=== PATIENT | male | born 1980 | race Two or more races ===

== ENCOUNTER 2017-08-29 13:04 | Emergency (ER) | payer OTHER ==
[~2017-08-29] VITALS: Ht 177.8 cm; Wt 86.2 kg
[2017-08-29 13:23] VITALS: BP 139/88
[2017-08-29] MEDS ORDERED: CEPHALEXIN500 MG ORAL (13:37)
[2017-08-29] MEDS ORDERED: FLUCONAZOLE100 MG ORAL (13:37)
--- NOTE | 2017-08-29 13:37 | Emergency Room Report ---
History of Present Illness General Chief Complaint: Pain Source: Patient Present Illness HPI 37 yo male patient presents to ER complaining of bilateral foot infection x1 week. Reports using [employer] without relief of symptoms. Reports infection getting worse. Reports "I need abx". Patient reports has not seen primary care provider. Denies fever, chest pain, SOB, loss of sensation. Patient able to ambulate independently. Allergies: Coded Allergies: No Known Allergies (Unverified , 08/29/17) Patient History Past Medical History: see triage record Reviewed Nursing Documentation: PMH: Agreed; PSxH: Agreed Nursing Documentation-PMH Past Medical History: No Stated History Review of Systems All Other Systems: negative except mentioned in HPI Physical Exam Vital Signs Date Time Temp Pulse Resp B/P (MAP) Pulse Ox O2 Delivery O2 Flow Rate FiO2 08/29/17 13:19 98.0 76 18 139/88 94 Room Air 98.1 Sp02 EP Interpretation: reviewed, normal General Appearance: well appearing, no apparent distress, alert, GCS 15, non- toxic Head: normocephalic, atraumatic Eyes: bilateral eye normal inspection, bilateral eye PERRL Neck: full range of motion Respiratory: lungs clear, normal breath sounds, no rhonchi, no respiratory distress, no accessory muscle use, no wheezing, speaking full sentences Cardiovascular #2: 2+ dorsalis pedis (R), 2+ dorsalis pedis (L) Musculoskeletal: back normal, digits/nails normal, gait/station normal, normal range of motion, non-tender Neurologic: alert, oriented x3, responsive, motor strength/tone normal, sensory intact Skin: other - bilateral feet: multiple crusterd erythematous plaques with thick scale over plantar surface of feet, multiple macules papulr lesions with central clearing on feet and ankles, no active draining, no pus, no bleeding Medical Decision Making PA Attestation Dr. Bean is my supervising Physician whom patient management has been discussed with. Diagnostic Impression: Primary Impression: Foot infection ER Course Pt. presents to the ED c/o bilateral foot infection. Ddx considered but are not limited to atopic dermatitis, scabies, tinea pedis, cellulitis. Vital signs: are WNL, pt. is afebrile ORDERS: None required at this time, the diagnosis is clinical ED COURSE: PE shows multiple sores and lesions on feet bilaterally. Consistent with bacterial and/or fungal infection. Will cover for bacterial and fungal infection. Followup with primary care provider. Request referral to derm and/or podiatry. Request evaluation for diabetes at that time. Feet cleaned and dressed in dressing. Keep clean and dry. Patient seen and evaluated by Dr. Bean, agrees with treatment and plan. DISCHARGE: -Rx given for Keflex -Rx given for Diflucan At this time pt. is stable for d/c to home. Patient resting comfortably, in no acute distress, nontoxic appearing, smiling and laughing and playing on his phone. Will provide printed patient care instructions, and any necessary prescriptions. Care plan and follow up instructions have been discussed with the patient prior to discharge. Patient provided with list of healthcare clinics to establish primary care physician. Patient instructed to follow-up with primary care provider in 3 - 5 days. Patient questions asked and answered. ER precautions given. Patient instructed to return to ER immediately for any new or worsening of symptoms including but not limited to increasing SOB, persistent fever. Last Vital Signs Date Time Temp Pulse Resp B/P (MAP) Pulse Ox O2 Delivery O2 Flow Rate FiO2 08/29/17 13:23 98.1 76 18 139/88 94 Room Air 98.1 Disposition: HOME, SELF-CARE Condition: Stable Scripts Cephalexin* (KEFLEX*) 500 Mg Capsule 500 MG ORAL EVERY 12 HOURS, #14 CAP 0 Refills Prov: Monroe Cardona 08/29/17 Fluconazole (FLUCONAZOLE) 100 Mg Tablet 100 MG ORAL DAILY, #7 TAB 0 Refills Prov: Monroe Cardona 08/29/17 Patient Instructions: Athlete's Foot, [id number], Rash, [id number] Additional Instructions: Followup with primary care provider in 3 -5 days. Discuss diabetes testing and evaluation at that time. Keep feet clean and dry. Take medications as directed. Patient questions asked and answered. ER precautions given, patient instructed to return to ER immediately for any new or worsening of symptoms. Monroe Cardona Aug 29, 2017 13:37
[2017-08-29 13:58] VITALS: BP 139/88
== END 2017-08-29 13:59 | disposition home or self-care (01) ==
LOC: EMR 13:45
DX: L08.9 Local infection of the skin and subcutaneous tissue, unspecified (principal)
CPT/HCPCS: 99284